=== PATIENT | female | born 1990 | race Two or more races ===

== ENCOUNTER 2021-10-11 22:18 | Inpatient (IN) | payer OTHER ==
[~2021-10-11] VITALS: Ht 157.5 cm; Wt 52.2 kg
[2021-10-11] MEDS ORDERED: PRENATAL + DHA1 EAC1 PO (23:17)
== END 2021-10-13 11:05 | disposition home or self-care (01) | DRG 833 ==
LOC: LDR 22:18 → OB/GYN 10-12 19:29
PROVIDERS: ADMIT Obstetrics & Gynecology; ATTEND Obstetrics & Gynecology
PROC: 4A1HXCZ Monitoring of Products of Conception, Cardiac Rate, External Approach (ICD-10-PCS; principal; 2021-10-11)
DX: O47.03 False labor before 37 completed weeks of gestation, third trimester (principal); Z3A.24 24 weeks gestation of pregnancy; Z20.822 Contact with and (suspected) exposure to COVID-19

== ENCOUNTER 2021-10-31 14:14 | Outpatient (CLI) | payer OTHER ==
[~2021-10-31 14:14] MED LIST: PRENATAL + DHA1 EAC1 PO
== END 2021-10-31 15:28 | disposition home or self-care (01) ==
LOC: NST 14:14
PROVIDERS: ATTEND Obstetrics & Gynecology
DX: Z34.82 Encounter for supervision of other normal pregnancy, second trimester (principal)

== ENCOUNTER 2021-11-16 12:20 | Outpatient (CLI) | payer OTHER | END 2021-11-16 13:13 | disposition home or self-care (01) | LOC: NST 12:20 | PROVIDERS: ATTEND Obstetrics & Gynecology Maternal & Fetal Medicine | DX: Z34.82 Encounter for supervision of other normal pregnancy, second trimester (principal) ==

== ENCOUNTER 2021-12-07 12:22 | Outpatient (CLI) | payer OTHER | END 2021-12-07 12:40 | disposition home or self-care (01) | LOC: NST 12:22 | PROVIDERS: ATTEND Obstetrics & Gynecology Maternal & Fetal Medicine | DX: Z34.83 Encounter for supervision of other normal pregnancy, third trimester (principal) ==

== ENCOUNTER 2022-01-13 01:22 | Inpatient (IN) | payer OTHER ==
[~2022-01-13] VITALS: Ht 157.5 cm; Wt 1.8 kg
== END 2022-01-17 16:54 | disposition home or self-care (01) | DRG 788 ==
LOC: LDR 01:22 → OB/GYN 01-14 19:56
PROVIDERS: ADMIT Obstetrics & Gynecology Gynecology; ATTEND Obstetrics & Gynecology Gynecology
PROC: 4A1HXCZ Monitoring of Products of Conception, Cardiac Rate, External Approach (ICD-10-PCS; 2022-01-13)
PROC: 10D00Z1 Extraction of Products of Conception, Low, Open Approach (ICD-10-PCS; principal; 2022-01-13 08:00)
DX: O30.043 Twin pregnancy, dichorionic/diamniotic, third trimester (principal); O14.14 Severe pre-eclampsia complicating childbirth; Z3A.37 37 weeks gestation of pregnancy; Z37.2 Twins, both liveborn; Z20.822 Contact with and (suspected) exposure to COVID-19